=== PATIENT | male | born 1990 | race Caucasian/White ===

== ENCOUNTER 2019-11-01 22:23 | Emergency (ER) | payer OTHER, SELFPAY ==
[2019-11-01 22:36] VITALS: BP 137/76; PULSE 108; RESP 18; TEMP 36.7; O2SAT 100
--- NOTE | 2019-11-01 22:46 | ED.SKABFB ---
HPI - Skin/Abscess/Foreign Bdy General Chief complaint: Skin/Abscess/Foreign Body Stated complaint: itching, irritation on back Source: patient Mode of arrival: ambulatory Limitations: no limitations History of Present Illness HPI narrative: this is a 28-year-old male that presents with some lesions on his back that are itchy with excoriations and cessation of brought a bugs crawling on his back, started a few days ago when he after he took his son fishing what he believes or chiggers, reassured patient that there is visually no insects on his skin or crawling around his skin. He has been scratching and itching causing excoriations to his back, using household bleach to try to ease the the itching and discomfort. 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 There is no nausea vomiting no abdominal pain no fever chills. complaint: rash Onset (ago): day(s) Tetanus up to date: unsure Location: back Severity: moderate Quality: other ( itching) Related Data Allergies Allergy/AdvReac Type Severity Reaction Status Date / Time No Known Allergies Allergy Verified 11/01/19 22:35 Review of Systems Review of Systems: All systems reviewed & are unremarkable except as noted in HPI and below PMFSH Past Medical History Medical History Patient denies medical problems Exam Const: General: no acute distress Orientation/consciousness: patient oriented x3 HENMT: Head: normal to inspection Eyes: Conjunctivae: conjunctivae normal Pupils: Equal, round and reactive pupils present EOM: EOMs intact bilaterally Neck: Neck: normal visual inspection, no lymphadenopathy and no meningeal signs Chest: Chest palpation & inspection: normal inspection of the chest Resp: Effort & Inspection: normal respiratory effort Auscultation: clear to auscultation bilaterally Cardio: Rate: regular rate Rhythm: regular rhythm GI: Auscultation: normal bowel sounds Skin: Wounds: wounds noted ( Excoriation and lesions on his back from scratching) Neuro: General: patient oriented x3 and moves all extremities Psych: Mental Status: mental status grossly normal Course Course Emergency Course: reassured patient that there is some no bugs crawling on his back, and offer him hydroxyzine and Depo-Medrol to relieve his itching and discomfort. Vital Signs Vital signs: Vital Signs Temperature 36.7 C 11/01/19 22:36 Pulse Rate 108 H 11/01/19 22:36 Respiratory Rate 18 11/01/19 22:36 Blood Pressure 137/76 11/01/19 22:36 Pulse Oximetry 100 11/01/19 22:36 Temperature 36.7 C 11/01/19 22:36 Pulse Rate 108 H 11/01/19 22:36 Respiratory Rate 18 11/01/19 22:36 Blood Pressure 137/76 11/01/19 22:36 Pulse Oximetry 100 11/01/19 22:36 Critical Care Time Critical Care Time Critical Care Time: No Discharge Plan Discharge Clinical Impression: Insect bites Qualifiers: Encounter type: initial encounter Site of insect bite: lower back Qualified Code(s): S30.860A - Insect bite (nonvenomous) of lower back and pelvis, initial encounter Patient Disposition: Home, Self-Care Condition: Stable Instructions: Antibiotic Form, Insect Bite or Sting (ED) Additional Instructions: Use medicine as prescribed and follow-up primary care physician if symptoms persist or worsen. Prescriptions: New diphenhydramine HCl [Benadryl] 25 mg capsule 25 mg PO TID PRN (Reason: itching) Qty: 20 RF: 0 methylprednisolone [Medrol (Ahsan)] 4 mg tablets,dose pack See Rx Instructions .ROUTE .COMPLEX Qty: 21 RF: 0 mupirocin 2 % ointment 1 applic TOPICAL TID 7 Days Qty: 15 RF: 0 Follow-up/Referrals: UNKNOWN,DOCTOR [Primary Care Provider] - Time of Disposition: 22:55
[2019-11-01] MEDS: methylPREDNISolone ACETATE 40 MG/ML VIAL 80 MG IM (22:52)
[2019-11-01] MEDS: HYDROXYZINE HCL (22:52)
[2019-11-01 23:02] VITALS: RESP 15
== END 2019-11-01 23:03 | disposition home or self-care (01) ==
PROVIDERS: Emergency Provider Emergency Medicine
DX: S30.860A Insect bite (nonvenomous) of lower back and pelvis, initial encounter (principal); W57.XXXA Bitten or stung by nonvenomous insect and other nonvenomous arthropods, initial encounter
CPT/HCPCS: 96372; 99283; 99284; J1030; J3410

== ENCOUNTER 2020-10-06 22:39 | Emergency (ER) | payer OTHER, SELFPAY ==
[2020-10-06 23:10] VITALS: BP 134/77; PULSE 87; RESP 20; TEMP 36.8; O2SAT 98
--- NOTE | 2020-10-06 23:18 | PC.NURSE ---
2300- I used 1 pack of 4x4's, Safe cleanse, and Hibclense to clean patient's wound on right hand, second digit, patient tolerated well.
--- NOTE | 2020-10-06 23:25 | PC.NURSE ---
Pt. pacing in and out of room, not wanting to stay and wait to see ERP as is in c other pts at this time. Pt. states he doesn't want needle stick and cannot tolerate needles. Pt. wanting to leave. This RN advised pt. to wait to see ERP and he will be evaluated soon and may not need sutures if it can be glued c dermabond. However, pt. still pacing room and wanting to leave and not be seen. Pt. agrees to sign AMA c risks/benefits explained to pt. Pt signed AMA and left before ERP could evaluate pt. Pts. lac wound to Rt finger cleansed and bandaid placed.
== END 2020-10-06 23:25 | disposition left against medical advice (07) ==
PROVIDERS: Emergency Provider Emergency Medicine
DX: S61.219A Laceration without foreign body of unspecified finger without damage to nail, initial encounter (principal)
CPT/HCPCS: 99199

== ENCOUNTER 2021-07-17 21:04 | Emergency (ER) | payer OTHER, SELFPAY ==
[2021-07-17 21:12] VITALS: BP 127/77; PULSE 83; RESP 14; TEMP 37; O2SAT 98
--- NOTE | 2021-07-17 21:19 | ED.NAVMDI ---
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 He has 4 5 episodes vomiting. His vomitus is sour. -- Multiple episodes of diarrhea. He has 8-10 episodes of diarrhea. -- Today when he wiped his anus after bowel movement he noted some blood. He has had black stools at times. No fever. No abdominal pain. Patient is not an alcoholic. He is a smoker. Takes ibuprofen on a p.r.n. basis for his back pain. -- chronic low back pain from left him MD elicited complaint: nausea, vomiting and diarrhea Onset (ago): day(s) ( 5 days) Description of vomiting: watery Description of diarrhea: blood and black tarry Exacerbating factors: none Relieving factors: none Associated symptoms: denies other symptoms Related Data Allergies Allergy/AdvReac Type Severity Reaction Status Date / Time No Known Allergies Allergy Verified 07/17/21 21:21 Review of Systems Review of Systems: All systems reviewed & are unremarkable except as noted in HPI and below Constitutional: Constitutional: Reports as per HPI and Reports no additional constitutional complaints Eyes: Eyes: Reports as per HPI and Reports no additional eye complaints ENT: Reports system reviewed and no additional complaints, except as documented and Reports as per HPI Cardiovascular: Cardiovascular: Reports as per HPI and Reports no additional cardiovascular complaints Respiratory: Respiratory: Reports as per HPI and Reports no additional respiratory complaints Gastrointestinal: Gastrointestinal: Reports as per HPI, Reports no additional gastrointestinal complaints, Reports melena, Reports diarrhea, Reports loose stools and Reports vomiting Genitourinary: Genitourinary: Reports no additional male genitourinary complaints Musculoskeletal: Musculoskeletal: Reports no additional musculoskeletal complaints, Reports as per HPI and Reports back pain Integumentary/Breasts: Skin/Breast: Reports system reviewed and no additional complaints, except as docu and Reports as per HPI Neurologic: Reports system reviewed and no additional complaints, except as documented and Reports as per HPI Psychiatric: Psychiatric: Reports no additional psychiatric complaints Endocrine: Endocrine: Reports no additional endocrine complaints Hematologic/Lymphatic: Hematologic/Lymphatic: Reports no additional hematologic/lymphatic complaints Allergic/Immunologic: Allergic/Immunologic: Reports no additional allergic/immunologic complaints [facility] Past Medical History Medical History (Updated 07/17/21 @ 22:16 by Zak Ford MD) Patient denies medical problems Exam Const: General: cooperative, healthy appearing, comfortable and no acute distress Nutritional Appearance: average body habitus HENMT: Head: normal to inspection Ears: hearing grossly normal bilaterally General nose exam: Normal external nose present and Normal nares present Face and sinus: normal facial exam Mouth: Yes Normal oral and palatal mucosa present, Yes lip normal and Yes tongue normal Throat: posterior oropharynx normal Eyes: General: appearance normal, both eyes and all related structures Neck: Neck: normal visual inspection, full ROM and no lymphadenopathy Chest: Chest palpation & inspection: normal inspection of the chest Resp: Effort & Inspection: normal respiratory effort Auscultation: clear to auscultation bilaterally Cardio: Jugular venous distension: no JVD Palpation: normal PMI Rate: regular rate Rhythm: regular rhythm Heart sounds: S1 normal heart sound present and S2 normal heart sound present GI: Inspection: normal to inspection Auscultation: normal bowel sounds Rectal Exam: visu
[2021-07-17 21:50] LABS: Hematocrit 43.3 % (40.0-54.0); Hemoglobin 15.2 g/dL (14.0-18.0); Mean Corpuscular HGB Conc 35.1 g/dL (32.0-36.0); Mean Corpuscular Hemoglobin 32.5 pg (27.0-31.0); Mean Corpuscular Volume 92.7 fL (78.0-102.0); Mean Platelet Volume 9.2 fl (8.7-11.0); Platelet Count Result 215 K/mm3 (150-420); Red Blood Count 4.67 M/mm3 (4.70-6.10); Red Cell Distribution Width 12.3 % (11.6-14.4); White Blood Count 6.3 K/mm3 (4.8-10.8)
[2021-07-17 21:52] LABS: Occult Blood Negative (Negative)
[2021-07-17 21:56] LABS: Prothrombin Time 11.1 Seconds (9.50-12.10)
[2021-07-17 21:59] LABS: Alanine Aminotransferase 20 U/L (16-63); Albumin Level 3.6 g/dL (3.4-5.0); Alkaline Phosphatase 72 U/L (46-116); Anion Gap 9 mmol/L (8-16); Aspartate Amino Transferase 23 U/L (15-37); Bilirubin,Total 0.3 mg/dL (0.00-1.00); Blood Urea Nitrogen 11 mg/dL (7-18); Calcium 8.4 mg/dL (8.5-10.1); Carbon Dioxide 27 mmol/L (21-32); Chloride 102 mmol/L (98-108); Estimated CRCL calculation 70 ml/min; Estimated Glomerular Filt Rate > 60; Glucose 91 mg/dL (70-99); Osmolality Calculated 285 mOsm/kg (285-295); Potassium 3.7 mmol/L (3.5-5.1); Sodium 138 mmol/L (136-145); Total Protein 7.1 g/dL (6.4-8.2)
[2021-07-17 22:00] LABS: Lipase 76 U/L (73-393)
[2021-07-17 22:04] LABS: Lactic Acid Reflex 0.9 mmol/L (0.4-2.0)
[2021-07-17 22:06] LABS: Band Neutrophils Percent 0 % (0-6); Basophils Percent Manual 0 % (0-1); Eosinophils Percent Manual 0 % (1-6); Lymphocytes Absolute Manual 2.33 K/mm3 (1.1-4.5); Lymphocytes Percent Manual 37 % (18-44); Monocytes Absolute Manual 1.19 K/mm3 (0.1-0.90); Monocytes Percent Manual 19 % (3-9); Neutrophils Absolute Manual 2.77 K/mm3 (1.3-6.7); Neutrophils Percent Manual 44 % (46-73); Platelet Estimate Adequate (Adequate); Total Cells Counted 100
[2021-07-17 22:09] LABS: SARS-CoV-2 Ag Negative (Negative)
[2021-07-17] MEDS: FAMOTIDINE 20 MG TABLET PO (22:28)
[2021-07-17] MEDS: ONDANSETRON HCL ODT 4 MG TABLET PO (22:28)
[2021-07-17 22:41] VITALS: BP 126/81; PULSE 79; RESP 14; O2SAT 98
== END 2021-07-17 22:44 | disposition home or self-care (01) ==
PROVIDERS: Emergency Provider Internal Medicine Critical Care Medicine
DX: K52.9 Noninfective gastroenteritis and colitis, unspecified (principal); Z20.822 Contact with and (suspected) exposure to COVID-19
CPT/HCPCS: 36415; 80053; 83605; 83690; 85025; 85610; 87426; 99283; A9270; C9803

== ENCOUNTER 2021-09-07 13:32 | Emergency (ER) | payer OTHER, SELFPAY ==
--- NOTE | ~2021-09-07 | CT_ITS ---
EXAMINATION: CT pelvis wo con DATE: 09/07/2021 14:32 INDICATION: Right hip pain. Pelvis injury. TECHNIQUE: Computed tomography (CT) of the pelvis was performed without intravenous contrast. Automat ed exposure control and iterative reconstruction technique were employed. The dose-length product was 239.89 mGy-cm. COMPARISON: None FINDINGS: There are no dilated loops of bowel. The appendix is normal. There is an umbilical hernia c ontaining fat. There are no pathologically enlarged lymph nodes. There is no free intraperitoneal flu id. There is subcutaneous fat stranding lateral to the proximal right femur, consistent with edema/in flammation. Bone alignment is normal. No fracture. The hip joint spaces are normal. There is mild lum bar spondylosis. IMPRESSION: 1. No fracture. Reviewed, dictated and finalized at location B. IMPRESSION: 1. No fracture.
--- NOTE | ~2021-09-07 | XR_ITS ---
EXAM: XR knee RT 3V HISTORY: KNEE PAIN, heavy item fell on pt knee 3 days ago COMPARISON: None available FINDINGS: Normal mineralization. No fracture or dislocation. No lytic or blastic lesion. Joint space s maintained. Moderate volume joint fluid. No erosion or periosteal change. Soft tissues within april l limits. IMPRESSION: No acute osseous finding in the right knee. Moderate right knee joint effusion. Reviewed, dictated and finalized at location K.
[2021-09-07 14:02] VITALS: BP 144/79; PULSE 98; RESP 16; TEMP 36.8; O2SAT 100
[2021-09-07] MEDS: KETOROLAC (*BKC) 60 MG/2 ML VIAL IM (14:24)
--- NOTE | 2021-09-07 14:26 | ED.LOWEXIN ---
HPI - Extremity Injury (Lower) General Chief Complaint: Extremity Injury, Lower Stated Complaint: accident on tuesday still in pain Time Seen by Provider: 09/07/21 13:34 Source: patient, family and RN notes reviewed Mode of arrival: ambulatory Limitations: no limitations History of Present Illness complaint: hip injury Onset (ago): day(s) (3) Injury: Right: hip Type of Injury: hyperextension (dislocated right hip was reduced 3 days ago. pt awaiting Ortho MD f/u and still has pain. ) Place: home Severity: moderate Severity scale (1-10): 6 Relieving factors: NSAID Exacerbating factors: weight bearing and movement Context: other (no additional acute injury) Other symptoms: none Treatments prior to arrival: NSAIDS Related Data Allergies Allergy/AdvReac Type Severity Reaction Status Date / Time No Known Allergies Allergy Verified 09/07/21 14:00 Review of Systems Review of Systems: All systems reviewed & are unremarkable except as noted in HPI and below PMFSH Past Medical History Medical History (Updated 09/07/21 @ 15:08 by Olya Keita MD) Patient denies medical problems Right hip pain Exam Const: General: no acute distress and alert Nutritional Appearance: well nourished Orientation/consciousness: patient oriented x3 Limitations: no limitations HENMT: Head: normal to inspection Ears: external ears normal, TM's normal bilaterally and EAC's normal General nose exam: Normal external nose present and Normal nares present Face and sinus: normal facial exam and sinuses nontender Mouth: Yes moist mucous membranes Eyes: General: appearance normal, both eyes and all related structures Visual Ma: normal visual ma by confrontation Conjunctivae: conjunctivae normal Pupils: Equal, round and reactive pupils present EOM: EOMs intact bilaterally Other: right forehead bandaged healing laceration. no other acute body tenderness. Neck: Neck: normal visual inspection and no lymphadenopathy Chest: Chest palpation & inspection: normal inspection of the chest Resp: Effort & Inspection: normal respiratory effort Auscultation: clear to auscultation bilaterally Cardio: Rate: regular rate Rhythm: regular rhythm GI: GI Palp: Yes Soft to palpation and No Tenderness to palpation present (GI) Auscultation: normal bowel sounds : General: Yes bladder normal to palpation and Yes no CVA tenderness Male General Exam: Yes normal external exam Back/Spine/Pelvis: Back: no CVA tenderness Skin: General skin exam: normal color Rashes: no rashes Neuro: General: patient oriented x3, moves all extremities, no meningeal signs, no focal motor deficits and CN's II-XI intact bilaterally Extrem: General: normal to inspection and no pedal edema Other: minimal right hip tenderness with no acute redness, swelling or deformity seen/palpable. Psych: Appearance: well kempt Mental Status: mental status grossly normal Attitude: cooperative Thought content: Yes Normal thought content present Course Course Emergency Course: Pt was stable in the ED. less pain-ful Reevaluation(s) Reevaluation #1: VSS Date: 09/07/21 Time: 14:26 Vital Signs Vital signs: Vital Signs Temperature 36.8 C 09/07/21 14:02 Pulse Rate 98 09/07/21 14:02 Respiratory Rate 16 09/07/21 14:02 Blood Pressure 144/79 H 09/07/21 14:02 Pulse Oximetry 100 09/07/21 14:02 Temperature 36.8 C 09/07/21 14:02 Pulse Rate 98 09/07/21 14:02 Respiratory Rate 16 09/07/21 14:02 Blood Pressure 144/79 H 09/07/21 14:02 Pulse Oximetry 100 09/07/21 14:02 MDM - Extremity Injury (Lower) Differential Diagnosis Differential diagnosis: Likely fracture of hip Medical Records Attestation: I reviewed the patient's medical records. Imaging Data Radiologist's impression: See the report. Critical Care Time Critical Care Time Critical Care Time: No Total Critical Care Time: 0 Discharge Plan Discharge Clinical Impression: Robyn
--- NOTE | 2021-09-07 14:37 | PC.NURSE ---
Per Nicky in medical records at [facility], they are having problems with their fax machine and information request did not go through. Nicky said that she should be able to accept the request via e-mail as long as it is sent from a hospital e-mail address. Request sent from this RN's work e-mail address to [email or web address].
--- NOTE | 2021-09-07 15:05 | PC.NURSE ---
ER chart and imaging reports received from [facility]. Information given to ERP to review.
[2021-09-07 15:20] VITALS: BP 119/61; PULSE 74; RESP 16; O2SAT 100
== END 2021-09-07 15:22 | disposition home or self-care (01) ==
PROVIDERS: Emergency Provider Emergency Medicine
DX: M25.561 Pain in right knee (principal)
CPT/HCPCS: 72192; 73562; 96372; 99284; J1885

== ENCOUNTER 2021-09-11 08:37 | Outpatient (RCR) | payer OTHER, SELFPAY ==
--- NOTE | 2021-09-11 08:00 | PTOPEVAL ---
Thank you for referring gabriele arias to [facility].? The patient is scheduled to be seen for therapy? __3__x/week for 12 visits. Please review, sign, date and return this plan of care HECTOR. I agree with and certify that the following plan of care is medically necessary. Referring Physician Date Admitting Provider: Attending Provider: JAH CLARK Referring Provider: *PT Outpatient Evaluation Start: 09/11/21 07:02 Freq: Status: Active Protocol: Document 09/11/21 07:02 TRENA (Rec: 09/11/21 08:00 TRENA [email or web address]) Therapy Assessment Status Assessment Status Assessment Status Evaluation Evaluation Information Problem Diagnosis right hip dislocation Onset 09/04/21 Subjective Information Pt. 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 He reports the load began to fall and he attempted to move getting the right leg caught. He reports that most pain is located. He describes pain in the front of the right hip and pain into the hernadez and the described HS . He reports that he is wearing a knee brace and was told to keep his knee straight . He states that his doctor informed him to gradually put more weight on the right leg. 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 Pt. reports that his goal is to return to walking normal. Prior Level of Function Activity Level (Last 3 Months) Hand Dominance Right Activity of Daily Living Ability Independent Indoor/Home Mobility Independent Community Mobility Independent Stairs Ability Independent Functional Cognition (Planning, Shopping Independent , Taking Medications) Cooking Yes Cleaning Yes Laundry Yes Shopping Yes Driving Yes Pain Assessment Timing of Pain Assessment Timing of Pain Assessment Pre-Treatment Pain Scale Pain Scale Used Numeric (1 - 10) Self Report Pain Assessment Right Leg(s) Reported Pain Level 5 Lowest Pain Intensity 5 Greatest
== END 2021-09-18 09:36 | disposition home or self-care (01) ==
LOC: CHSPT 08:37
DX: S73.004A Unspecified dislocation of right hip, initial encounter (principal)
CPT/HCPCS: 97110; 97161; 97530

== ENCOUNTER 2022-09-24 18:05 | Emergency (ER) | payer OTHER, SELFPAY ==
--- NOTE | ~2022-09-24 | XR_ITS ---
EXAM: XR tibia fibula RT 2V DATE: 09/24/2022 18:23 HISTORY: INFECTION ON MID-MEDIAL RT TIB/FIB X 3 DAYS PAIN TO THE AREA . COMPARISON: None available. FINDINGS: Normal mineralization. No fracture or dislocation. No lytic or blastic lesion. Joint space s are maintained. No erosion or periosteal change. Soft tissues within normal limits. IMPRESSION: No acute osseous finding in the right tibia/fibula. Reviewed, dictated and finalized at location K.
[2022-09-24 18:12] VITALS: BP 145/77; PULSE 98; RESP 17; TEMP 37.3; O2SAT 99
--- NOTE | 2022-09-24 18:23 | ED.WOUNDLAC ---
HPI - Wound/Laceration General Chief Complaint: Wound/Laceration Stated Complaint: burn to right leg Time Seen by Provider: 09/24/22 18:09 History of Present Illness HPI narrative: This is a 31-year-old male who denies significant past medical history, presenting to the emergency department complaining of right calf pain. He states 2 days ago, his clothes caught on fire over the right calf while cutting railroad rails. He states over the past day, he has noticed spreading redness and has had mild calf tightness that improves with walking. He denies fevers, abdominal pain, difficulty breathing or chest pain. Related Data Allergies Allergy/AdvReac Type Severity Reaction Status Date / Time No Known Allergies Allergy Verified 09/24/22 18:10 Review of Systems Review of Systems: CONSTITUTIONAL: Denies fever, chills, or sweats. CARDIOVASCULAR: Denies chest pain, palpitations, or edema. RESPIRATORY: Denies cough or dyspnea. GASTROINTESTINAL: Denies abdominal pain, nausea, vomiting, or diarrhea. GENITOURINARY: Denies dysuria or hematuria. SKIN: Spreading erythema of the right calf with a central burn denies itching. MUSCULOSKELETAL: Right calf tenderness denies back pain, joint pain, or myalgia. NEUROLOGIC: Denies headache, numbness, dizziness, or weakness. PSYCHIATRIC: Denies anxiety or depression. PMFSH Past Medical History Medical History Patient denies medical problems Right hip pain Social History Social History (Updated 09/24/22 @ 18:52 by Chico Mackey MD) Smoking status: Current every day smoker Alcohol intake: never Substance use: current Substance use type: marijuana Lack of Transportation: No Lack of Food: Never True Current Housing: I Have Housing Currently Unemployed: No Exam Narrative: GENERAL: Well-developed, well-nourished, and in no acute distress. HEAD: Normocephalic, atraumatic. EYES: PERRLA and EOMI. CHEST: Clear to auscultation. No respiratory distress. No wheezes rales or rhonchi HEART: Regular rate and rhythm. No murmur heard. Normal peripheral pulses. ABDOMEN: Soft, nontender, nondistended, normal active bowel sounds. EXTREMITIES: Normal range of motion. No edema. SKIN: A 4 x 5 cm lesion is noted on the medial aspect of the right calf consistent with a healing second-degree burn. There is surrounding erythema with sharp demarcation consistent with cellulitis measuring approximately 20 x 10 cm. Skin otherwise warm, dry, no rash. NEURO: No focal deficits. Alert and oriented x3. PSYCH: Normal mood and affect. Course Course Emergency Course: 18:16 - PACs is malfunctioning. Images are not able to be transmitted for radiology interpretation. My bedside review of the patient's x-ray is not concerning for retained foreign object or obvious fracture. I suspect cellulitis. The patient is up-to-date on his tetanus vaccination. Will discharge with pain medications antibiotics. Discussed return and emergency precautions including signs/symptoms of antibiotic failure and DVT. The patient voiced understanding and is comfortable with the plan. All questions answered to his satisfaction Vital Signs Vital signs: Vital Signs Temperature 99.2 F 09/24/22 18:12 Pulse Rate 98 09/24/22 18:12 Respiratory Rate 17 09/24/22 18:12 Blood Pressure 145/77 H 09/24/22 18:12 Pulse Oximetry 99 09/24/22 18:12 Oxygen Delivery Room Air 09/24/22 18:12 Temperature 99.2 F 09/24/22 18:12 Pulse Rate 98 09/24/22 18:12 Respiratory Rate 17 09/24/22 18:12 Blood Pressure 145/77 H 09/24/22 18:12 Pulse Oximetry 99 09/24/22 18:12 Oxygen Delivery Room Air 09/24/22 18:12 MDM - Wound/Laceration MDM Narrative Medical decision making narrative: Plan: Imaging, wound care, antibiotics, primary care follow-up, reassess Differential Diagnosis Differential diagnosis: Likely other (Burn, cellulitis, other
[2022-09-24] MEDS: CLINDAMYCIN HCL 150 MG CAP 450 MG PO (18:32)
[2022-09-24] MEDS: ACETAMINOPHEN 500 MG TABLET 1000 MG PO (18:32)
[2022-09-24 18:51] VITALS: BP 145/77; PULSE 98; RESP 17; TEMP 37.3; O2SAT 99
== END 2022-09-24 18:52 | disposition home or self-care (01) ==
LOC: CHSED 18:36
PROVIDERS: Emergency Provider Preventive Medicine Aerospace Medicine; PCP Internal Medicine
DX: T24.231A Burn of second degree of right lower leg, initial encounter (principal); T31.0 Burns involving less than 10% of body surface; L03.115 Cellulitis of right lower limb; F17.200 Nicotine dependence, unspecified, uncomplicated; X08.8XXA Exposure to other specified smoke, fire and flames, initial encounter; Y92.85 Railroad track as the place of occurrence of the external cause
CPT/HCPCS: 73590; 99283; A9270

== ENCOUNTER 2024-04-29 22:32 | Emergency (ER) | payer OTHER, SELFPAY ==
--- NOTE | ~2024-04-29 | XR_ITS ---
Right foot Technique: AP, oblique, and lateral views were obtained. Clinical History: Pain Findings: No acute fracture or dislocation is seen. Osseous alignment is anatomic. Joint spaces are p reserved without erosive or degenerative change. Soft tissues are unremarkable. Impression: Unremarkable right foot radiographs. Reviewed, dictated and finalized at location . [employer] Impression: Unremarkable right foot radiographs.
[2024-04-29 22:38] VITALS: BP 153/97; PULSE 100; RESP 21; TEMP 37.1; O2SAT 100
--- NOTE | 2024-04-29 22:38 | ED.LOWEXIN ---
HPI - Extremity Injury (Lower) General Chief Complaint: Extremity Injury, Lower Stated Complaint: injury to right foot Time Seen by Provider: 04/29/24 22:38 Source: patient Mode of arrival: ambulatory Limitations: no limitations History of Present Illness HPI Narrative: Patient is a 33-year-old male with right foot lateral aspect plantar surface laceration from a week and half ago from a nail. He stepped on a nail and left him with the wound. He feels the pain in his foot and up his lower leg. He is having some redness around the area. Tetanus shot was 4-5 years ago. complaint: foot injury ( right) Onset (ago): week(s) ( 1.5 weeks) Injury: Right: foot Type of Injury: puncture wound ( nail) Place: work and street/outdoors Severity: moderate Severity scale (1-10): 4 Relieving factors: rest Exacerbating factors: weight bearing, movement and palpation Context: stepped on nail Associated symptoms: swelling and able to partially bear weight Other symptoms: none Treatments prior to arrival: other ( none) Related Data Allergies Allergy/AdvReac Type Severity Reaction Status Date / Time No Known Allergies Allergy Verified 04/29/24 23:19 Review of Systems Review of Systems: All systems reviewed & are unremarkable except as noted in HPI and below Constitutional: Constitutional: Reports no additional constitutional complaints Eyes: Eyes: Reports no additional eye complaints ENT: Reports system reviewed and no additional complaints, except as documented Cardiovascular: Cardiovascular: Reports no additional cardiovascular complaints Respiratory: Respiratory: Reports no additional respiratory complaints Gastrointestinal: Gastrointestinal: Reports no additional gastrointestinal complaints Genitourinary: Genitourinary: Reports no additional male genitourinary complaints Musculoskeletal: Musculoskeletal: Reports no additional musculoskeletal complaints Integumentary/Breasts: Skin/Breast: Reports system reviewed and no additional complaints, except as docu Neurologic: Reports system reviewed and no additional complaints, except as documented Psychiatric: Psychiatric: Reports no additional psychiatric complaints Endocrine: Endocrine: Reports no additional endocrine complaints Hematologic/Lymphatic: Hematologic/Lymphatic: Reports no additional hematologic/lymphatic complaints Allergic/Immunologic: Allergic/Immunologic: Reports no additional allergic/immunologic complaints PMFSH Past Medical History Medical History Patient denies medical problems Right hip pain Social History Social History Smoking status: Current every day smoker Alcohol intake: never Substance use: current Substance use type: marijuana Lack of Transportation: No Lack of Food: Never True Current Housing: I Have Housing Currently Unemployed: No Exam Const: General: healthy appearing Nutritional Appearance: well nourished Orientation/consciousness: patient oriented x3 Limitations: no limitations HENMT: Head: normal to inspection Ears: external ears normal Face/Nose/Sinus: Normal external nose present Eyes: Conjunctivae: conjunctivae normal Pupils: Equal, round and reactive pupils present EOM: EOMs intact bilaterally Neck: Neck: normal visual inspection Chest: Chest palpation & inspection: normal inspection of the chest Resp: Effort & Inspection: normal respiratory effort and not labored Auscultation: clear to auscultation bilaterally and no crackles Cardio: Rate: regular rate Rhythm: regular rhythm Heart sounds: no murmurs GI: Inspection: non-distended GI Palp: Yes Soft to palpation and No Tenderness to palpation present (GI) Auscultation: normal bowel sounds : General: Yes bladder normal to palpation Back/Spine/Pelvis: Back: no CVA tenderness Skin: General skin exam: normal color Rashes: no rashes Wounds: wound noted Other: right foot plantar surface lateral aspect distally has a 1 cm linear laceration from a week ago from a nail; there is erythema around the area and there was expelled pus from the area Neuro: General: patient oriented x3 Cranial nerves: Yes Nystagmus not present Speech: normal speech Gait exam (Neuro): Normal gait present Extrem: General: abnormal to inspection, no clubbing, cyanosis or edema and no pedal edema Other: please see skin exam Psych: Mental Status: mental status grossly normal Affect: normal affect Attitude: cooperative Course Vital Signs Vital signs: Vital Signs Temperature 37.1 C 04/29/24 22:38 Pulse Rate 100 04/29/24 22:38 Respiratory Rate 21 H 04/29/24 22:38 Blood Pressure 153/97 H 04/29/24 22:38 Pulse Oximetry 100 04/29/24 22:38 Oxygen Delivery Room Air 04/29/24 22:38 Temperature 37.1 C 04/29/24 22:38 Pulse Rate 100 04/29/24 22:38 Respiratory Rate 21 H 04/29/24 22:38 Blood Pressure 153/97 H 04/29/24 22:38 Pulse Oximetry 100 04/29/24 22:38 Oxygen Delivery Room Air 04/29/24 22:38 MDM - Extremity Injury (Lower) MDM Narrative Medical decision making narrative: patient is a 33-year-old male who stepped on a nail to his right foot. We will get an x-ray and tetanus shot. We will start antibiotics. We will give him pain control. Imaging Data Attestation: I personally reviewed and interpreted this imaging study as follows: Radiologist's impression: right foot x-ray was negative for acute process (pending final reading) Discharge Plan Discharge Clinical Impression: Hand injury Qualifiers: Encounter type: initial encounter Laterality: left Qualified Code(s): S69.92XA - Unspecified injury of left wrist, hand and finger(s), initial encounter Puncture wound of hand Qualifiers: Encounter type: initial encounter Foreign body presence: without foreign body Laterality: left Qualified Code(s): S61.432A - Puncture wound without foreign body of left hand, initial encounter Patient Disposition: Home, Self-Care Condition: Improved Instructions: Antibiotic Form, Puncture Wound (ED) Prescriptions: New hydrocodone-acetaminophen 10-325 mg tablet 1 tablet PO Q8H PRN (Reason: pain) Qty: 20 0RF Rx Instructions: 1/2-1 tab per dose cephalexin 500 mg capsule 500 mg PO TID 10 Days Qty: 30 0RF Follow-up/Referrals: Pee Sanchez MD [Primary Care Provider] - Time of Disposition: 23:34
[2024-04-29] MEDS: HYDROcodone/acetaminophen (*CRX) 10-325 MG TABLET 1 TAB PO (23:05)
[2024-04-29] MEDS: TETANUS,DIPHTHERIA,AC PERTUSSIS ADULT 0.5 ML (ADACEL) IM (23:07)
[2024-04-29] MEDS: cefTRIAXone 1 GM, LIDOCAINE HCL 1% LOCAL INJ 2.1 ML IM (23:25)
== END 2024-04-29 23:42 | disposition home or self-care (01) ==
PROVIDERS: Emergency Provider Emergency Medicine; PCP Internal Medicine
DX: S91.331A Puncture wound without foreign body, right foot, initial encounter (principal); F17.200 Nicotine dependence, unspecified, uncomplicated; W45.0XXA Nail entering through skin, initial encounter; Y99.0 Civilian activity done for income or pay; Z23 Encounter for immunization
CPT/HCPCS: 73630; 90471; 90715; 96372; 99283; A9270; J0696; J2003